=== PATIENT | female | born 1945 | race Caucasian/White ===

== ENCOUNTER 2017-08-04 05:17 | Inpatient (IN) ==
[2017-08-04] MEDS ORDERED: BACITRACIN OINT 0.9 GM PACK TOP ONE (06:36)
[2017-08-04] MEDS ORDERED: TRANEXAMIC ACID 1,000 MG/10 ML VIAL IV ONE ×2 (06:36→07:22)
[2017-08-04] MEDS ORDERED: GABAPENTIN 300 MG CAPSULE PO ONE (06:56)
[2017-08-04] MEDS ORDERED: DIAZEPAM 5 MG TABLET PO ONE (06:57)
[2017-08-04] MEDS ORDERED: METOCLOPRAMIDE 10 MG TABLET PO ONE (06:58)
[2017-08-04] MEDS ORDERED: VANCOMYCIN INJ 1,000 MG in SODIUM CHLORIDE 0.9% 250 ML IV ONE (07:00)
[2017-08-04] MEDS ORDERED: ceFAZolin 1,000 MG in SYRINGE 1 EACH IV ONE (07:00)
[2017-08-04] MEDS ORDERED: VANCOMYCIN 1,000 MG VIAL ONE (07:06)
[2017-08-04] MEDS ORDERED: ceFAZolin 1,000 MG VIAL ONE (07:06)
[2017-08-04] MEDS ORDERED: DIAZEPAM 5 MG TABLET ONE (07:07)
[2017-08-04] MEDS ORDERED: METOCLOPRAMIDE 10 MG/2 ML VIAL ONE (07:10)
[2017-08-04] MEDS ORDERED: PANTOPRAZOLE 40 MG TABLET PO ONE (07:10)
[2017-08-04] MEDS: PANTOPRAZOLE 40 MG TABLET PO SCH ×2 (07:21→17:54)
[2017-08-04] MEDS ORDERED: MORPHINE 10 MG/10 ML VIAL ONE (07:24)
[2017-08-04] MEDS ORDERED: LACTATED RINGERS 1,000 ML IV SCH ×2 (08:00→11:00)
[2017-08-04] MEDS ORDERED: FLUCONAZOLE 150 MG TABLET PO PRN (10:12)
[2017-08-04] MEDS ORDERED: MAGNESIUM HYDROXIDE SUSP 30 ML UDCUP PO PRN (10:15)
[2017-08-04] MEDS ORDERED: ONDANSETRON 4 MG/2 ML VIAL IV PRN ×3 (10:15→10:56)
[2017-08-04] MEDS ORDERED: oxyCODONE IR 5 MG TABLET PO PRN ×2 (10:15)
[2017-08-04] MEDS ORDERED: ZALEPLON 5 MG CAPSULE PO PRN (10:15)
[2017-08-04] MEDS ORDERED: HYDROmorphone 2 MG/1 ML VIAL IV PRN ×4 (10:15→10:56)
[2017-08-04] MEDS ORDERED: KETAMINE 500 MG/10 ML VIAL ONE (10:23)
[2017-08-04] MEDS ORDERED: PROPOFOL 1,000 MG/100 ML BOTTLE IV ONE (10:24)
[2017-08-04] MEDS ORDERED: fentaNYL 100 MCG/2 ML VIAL ONE (10:24)
[2017-08-04] MEDS ORDERED: LACTATED RINGERS 2,000 ML IV ONE (10:25)
[2017-08-04] MEDS ORDERED: diphenhydrAMINE 50 MG/1 ML VIAL IV PRN (10:56)
[2017-08-04] MEDS ORDERED: SODIUM CHLORIDE 0.9% 1,000 ML IV SCH (11:00)
[2017-08-04] MEDS ORDERED: diphenhydrAMINE 50 MG/1 ML VIAL IV STA (11:07)
[2017-08-04] MEDS ORDERED: diphenhydrAMINE 50 MG/1 ML VIAL ONE (11:09)
[2017-08-04 12:18] LABS: Apearance,Urine Clear (Clear); Urine Color Yellow (Yellow)
[2017-08-04 12:19] LABS: Bilirubin,Urine Negative (Negative); Blood, Urine Negative (Negative); Glucose,Urine (UA) Negative (Negative); Ketones,Urine Negative (Negative); Nitrite,Urine Negative (Negative); Protein,Urine Negative; Urine Specific Gravity 1.015 (1.001-1.035); Urine Urobilinogen 0.2 EU/DL (0.2-1.0)
[2017-08-04 12:31] LABS: Squamous Epithelial Cell,Urine Rare /HPF (0-10); WBC,Urine 0-2 /HPF (0-6)
[2017-08-04] MEDS: KETOROLAC 30 MG/1 ML VIAL IV SCH ×3 (17:54→23:26)
[2017-08-04] MEDS: POTASSIUM CHLORIDE INJ 20 MEQ in LACTATED RINGERS 1,000 ML IV SCH ×2 (18:12→21:17)
[2017-08-04] MEDS: METOCLOPRAMIDE 5 MG TABLET PO SCH ×2 (18:17→21:14)
[2017-08-04] MEDS: ACETAMINOPHEN 500 MG TABLET PO SCH ×2 (18:17→21:24)
[2017-08-04] MEDS: ceFAZolin 2,000 MG in PREMIX 1 EACH IV SCH ×2 (18:17→23:25)
[2017-08-04] MEDS: DOCUSATE SODIUM 100 MG CAPSULE PO SCH (21:14)
[2017-08-04] MEDS: GABAPENTIN 300 MG CAPSULE PO SCH (21:14)
[2017-08-04] MEDS: CIPROFLOXACIN 500 MG TABLET PO SCH (21:16)
[2017-08-04] MEDS: POTASSIUM CHLORIDE 10 MEQ TABLET PO SCH (21:16)
[2017-08-04] MEDS: ESTRADIOL 0.01% VAG CREAM 42.5 GM TUBE VAG SCH (21:23)
[2017-08-05] MEDS: ACETAMINOPHEN 500 MG TABLET PO SCH ×2 (01:55→11:06)
[2017-08-05] MEDS: KETOROLAC 30 MG/1 ML VIAL IV SCH (04:29)
[2017-08-05] MEDS: POTASSIUM CHLORIDE INJ 20 MEQ in LACTATED RINGERS 1,000 ML IV SCH (04:29)
[2017-08-05] MEDS: FONDAPARINUX 2.5 MG/0.5 ML SYRINGE SUBCUT SCH (05:48)
[2017-08-05 06:07] LABS: Basophils % 0.2 % (0.0-0.8); Eosinophils # 0.1 10*3/uL (0.0-0.87); Eosinophils % 2.5 % (0.00-10.9); Hematocrit 26.8 VOL% (35.7-47.0); Hemoglobin 8.7 GM/DL (12.0-16.0); Immature Granulocytes % 0.5 %; Immature Granulocytes Absolute 0.03 #; Lymphocytes # 1.3 10*3/uL (1.4-4.0); Lymphocytes % 23.3 % (21.3-54.2); Mean Corpuscular HGB Conc 32.5 GM/DL (32-36); Mean Corpuscular Hemoglobin 32 PG (27-34); Mean Corpuscular Volume 99.6 FL (87-102); Mean Platelet Volume 9.9 FL (9.6-12.0); Monocytes # 0.6 10*3/uL (0.11-0.8); Monocytes % 9.9 % (1.7-12.7); Neutrophils # 3.5 10*3/uL (1.4-7.4); Neutrophils % 63.6 % (38.7-73.9); Platelet Count 155 T/CUMM (130-400); Red Blood Count 2.69 MC/CUMM (3.8-5.5); Red Cell Distribution Width 12.6 % (9.3-17.3); White Blood Count 5.5 T/CUMM (4-12)
[2017-08-05 06:42] LABS: Anisocytosis 1+; Band Neutrophils 6 % (0-10); Eosinophils 1 % (0-10); Lymphocytes 33 % (20-55); Macrocytosis 3+; Platelet Estimate Normal; Segmented Neutrophils 53 % (50-85); Total Cells Counted 100
[2017-08-05 06:43] LABS: Calcium 8.1 MG/DL (8.5-10.1); Osmolality,Calculated 277.7 MOS/KG (273-304); Potassium 4.1 MMOL/L (3.5-5.1)
[2017-08-05] MEDS ORDERED: TUBERCULIN SKIN TEST 0.1 ML SYRINGE INTRADERM ONE (08:00)
[2017-08-05] MEDS: LEVOTHYROXINE 88 MCG TABLET PO SCH (11:05)
[2017-08-05] MEDS: VALSARTAN/HCTZ 160-12.5 MG TABLET PO SCH (11:05)
[2017-08-05] MEDS: FLUoxetine 20 MG CAPSULE PO SCH (11:05)
[2017-08-05] MEDS: METOCLOPRAMIDE 5 MG TABLET PO SCH ×3 (11:05→20:18)
[2017-08-05] MEDS: POTASSIUM CHLORIDE 10 MEQ TABLET PO SCH ×2 (11:06→20:19)
[2017-08-05] MEDS: GABAPENTIN 300 MG CAPSULE PO SCH ×2 (11:06→20:18)
[2017-08-05] MEDS: PANTOPRAZOLE 40 MG TABLET PO SCH (11:07)
[2017-08-05] MEDS: CIPROFLOXACIN 500 MG TABLET PO SCH ×2 (11:07→20:19)
[2017-08-05] MEDS: DOCUSATE SODIUM 100 MG CAPSULE PO SCH ×2 (11:10→20:19)
[2017-08-05] MEDS: CELECOXIB 200 MG CAPSULE PO SCH (15:16)
[2017-08-05] MEDS: ESTRADIOL 0.01% VAG CREAM 42.5 GM TUBE VAG SCH (20:15)
[2017-08-05] MEDS: diphenhydrAMINE CAP 25 MG CAPSULE PO PRN (20:18)
[2017-08-06] MEDS: FONDAPARINUX 2.5 MG/0.5 ML SYRINGE SUBCUT SCH (05:52)
[2017-08-06 06:14] LABS: Basophils % 0.1 % (0.0-0.8); Eosinophils # 0.2 10*3/uL (0.0-0.87); Eosinophils % 2.9 % (0.00-10.9); Hemoglobin 8.4 GM/DL (12.0-16.0); Immature Granulocytes Absolute 0.07 #; Lymphocytes % 14.4 % (21.3-54.2); Mean Corpuscular HGB Conc 32.3 GM/DL (32-36); Mean Corpuscular Hemoglobin 32 PG (27-34); Mean Corpuscular Volume 99.2 FL (87-102); Mean Platelet Volume 9.8 FL (9.6-12.0); Monocytes # 0.6 10*3/uL (0.11-0.8); Monocytes % 8.7 % (1.7-12.7); Neutrophils # 5.1 10*3/uL (1.4-7.4); Neutrophils % 72.9 % (38.7-73.9); Platelet Count 167 T/CUMM (130-400); Red Blood Count 2.62 MC/CUMM (3.8-5.5); Red Cell Distribution Width 12.6 % (9.3-17.3)
[2017-08-06 06:37] LABS: Band Neutrophils 3 % (0-10); Eosinophils 6 % (0-10); Giant Platelets Few; Hypochromasia 1+; Lymphocytes 12 % (20-55); Microcytosis Slight; Platelet Estimate Normal; Segmented Neutrophils 72 % (50-85); Total Cells Counted 100
[2017-08-06] MEDS: VALSARTAN/HCTZ 160-12.5 MG TABLET PO SCH (08:49)
[2017-08-06] MEDS: METOCLOPRAMIDE 5 MG TABLET PO SCH ×3 (08:50→20:21)
[2017-08-06] MEDS: GABAPENTIN 300 MG CAPSULE PO SCH ×2 (08:50→20:21)
[2017-08-06] MEDS: CIPROFLOXACIN 500 MG TABLET PO SCH ×2 (08:50→20:21)
[2017-08-06] MEDS: PANTOPRAZOLE 40 MG TABLET PO SCH (08:50)
[2017-08-06] MEDS: CELECOXIB 200 MG CAPSULE PO SCH (08:50)
[2017-08-06] MEDS: LEVOTHYROXINE 88 MCG TABLET PO SCH (08:50)
[2017-08-06] MEDS: FLUoxetine 20 MG CAPSULE PO SCH (08:50)
[2017-08-06] MEDS: POTASSIUM CHLORIDE 10 MEQ TABLET PO SCH ×2 (08:50→20:21)
[2017-08-06] MEDS: DOCUSATE SODIUM 100 MG CAPSULE PO SCH ×2 (08:53→20:23)
[2017-08-06] MEDS: chlordiazePOXIDE 10 MG CAPSULE PO SCH ×2 (17:51→20:22)
[2017-08-06] MEDS: ESTRADIOL 0.01% VAG CREAM 42.5 GM TUBE VAG SCH (20:16)
[2017-08-06] MEDS: diphenhydrAMINE CAP 25 MG CAPSULE PO PRN (20:20)
[2017-08-07] MEDS: FONDAPARINUX 2.5 MG/0.5 ML SYRINGE SUBCUT SCH (05:20)
[2017-08-07 06:54] LABS: Basophils % 0.2 % (0.0-0.8); Eosinophils # 0.3 10*3/uL (0.0-0.87); Hematocrit 25.8 VOL% (35.7-47.0); Hemoglobin 8.3 GM/DL (12.0-16.0); Immature Granulocytes % 0.6 %; Immature Granulocytes Absolute 0.04 #; Lymphocytes # 1.5 10*3/uL (1.4-4.0); Lymphocytes % 23.3 % (21.3-54.2); Mean Corpuscular HGB Conc 32.2 GM/DL (32-36); Mean Corpuscular Hemoglobin 32 PG (27-34); Mean Corpuscular Volume 99.2 FL (87-102); Mean Platelet Volume 10.4 FL (9.6-12.0); Monocytes # 0.8 10*3/uL (0.11-0.8); Monocytes % 11.6 % (1.7-12.7); Neutrophils % 60.3 % (38.7-73.9); Platelet Count 179 T/CUMM (130-400); Red Cell Distribution Width 12.6 % (9.3-17.3); White Blood Count 6.6 T/CUMM (4-12)
[2017-08-07 07:18] LABS: Eosinophils 1 % (0-10); Giant Platelets Few; Hypochromasia 1+; Lymphocytes 25 % (20-55); Microcytosis Slight; Ovalocytes Slight; Platelet Estimate Normal; Segmented Neutrophils 67 % (50-85); Total Cells Counted 100
[2017-08-07] MEDS: CELECOXIB 200 MG CAPSULE PO SCH (09:56)
[2017-08-07] MEDS: VALSARTAN/HCTZ 160-12.5 MG TABLET PO SCH (09:57)
[2017-08-07] MEDS: POTASSIUM CHLORIDE 10 MEQ TABLET PO SCH (09:57)
[2017-08-07] MEDS: chlordiazePOXIDE 10 MG CAPSULE PO SCH (09:58)
[2017-08-07] MEDS: GABAPENTIN 300 MG CAPSULE PO SCH (09:59)
[2017-08-07] MEDS: FLUoxetine 20 MG CAPSULE PO SCH (09:59)
[2017-08-07] MEDS: DOCUSATE SODIUM 100 MG CAPSULE PO SCH (09:59)
[2017-08-07] MEDS: PANTOPRAZOLE 40 MG TABLET PO SCH (09:59)
[2017-08-07] MEDS: METOCLOPRAMIDE 5 MG TABLET PO SCH (09:59)
[2017-08-07] MEDS: LEVOTHYROXINE 88 MCG TABLET PO SCH (09:59)
[2017-08-07 11:09] VITALS: BP 98/63
[2017-08-07] MEDS ORDERED: chlordiazePOXIDE 10 MG CAPSULE PO PRN (11:11)
== END 2017-08-07 11:02 | disposition swing bed (61) | DRG 470 ==
LOC: N.SDSINP 05:17 → N.3E 12:01
PROVIDERS: ADMIT Orthopaedic Surgery; ATTEND Orthopaedic Surgery

== ENCOUNTER 2018-11-17 10:30 | Inpatient (IN) ==
[2018-11-17] MEDS ORDERED: DICYCLOMINE 10 MG CAPSULE PO PRN (12:04)
[2018-11-17] MEDS ORDERED: HydrOXYzine PAMOATE 25 MG CAPSULE PO PRN (12:04)
[2018-11-17] MEDS ORDERED: LORazepam 2 MG/1 ML VIAL IV PRN (12:04)
[2018-11-17 12:27] LABS: Basophils % 0.2 % (0.0-0.8); Hematocrit 36.7 VOL% (35.7-47.0); Hemoglobin 11.7 GM/DL (12.0-16.0); Immature Granulocytes % 0.6 %; Immature Granulocytes Absolute 0.05 #; Lymphocytes % 11.7 % (21.3-54.2); Mean Corpuscular HGB Conc 31.9 GM/DL (32-36); Mean Corpuscular Volume 99.7 FL (87-102); Mean Platelet Volume 9.4 FL (9.6-12.0); Monocytes % 5.5 % (1.7-12.7); Platelet Count 200 T/CUMM (130-400); Red Blood Count 3.68 MC/CUMM (3.8-5.5); Red Cell Distribution Width 13.2 % (9.3-17.3); White Blood Count 8.3 T/CUMM (4-12)
[2018-11-17 12:52] LABS: Osmolality,Calculated 279.7 MOS/KG (273-304)
[2018-11-17] MEDS ORDERED: THIAMINE INJ 100 MG, FOLIC ACID INJ 1 MG, MULTIVITAMIN INJ 10 ML in SODIUM CHLORIDE 0.9... IV ONE (14:00)
[2018-11-17] MEDS ORDERED: PHENYLEPH/MINERAL OIL/PETROLAT 57 GM TUBE TOP PRN (14:20)
[2018-11-17] MEDS: DICLOFENAC 1% GEL 100 GM TUBE TOP SCH ×2 (14:49→21:51)
[2018-11-17 16:50] LABS: Apearance,Urine CLEAR (Clear); Bacteria,Urine Occasional /HPF (Few); Bilirubin,Urine Negative (Negative); Blood, Urine Negative (Negative); Glucose,Urine (UA) Negative (Negative); Ketones,Urine Negative (Negative); Mucus,Urine Occasional /LPF (Occasional); Nitrite,Urine Negative (Negative); Protein,Urine Negative; RBC,Urine <1 /HPF (0-4); Squamous Epithelial Cell,Urine Occasional /HPF (0-10); Urine Color Straw (Yellow); Urine Specific Gravity 1.018 (1.001-1.035); Urine Urobilinogen < 2.0 EU/DL (0.2-1.0); WBC,Urine 1 /HPF (0-6)
[2018-11-17] MEDS: ONDANSETRON 4 MG/2 ML VIAL IV PRN (16:56)
[2018-11-17] MEDS: LOPERAMIDE 2 MG CAPSULE PO PRN (16:56)
[2018-11-17] MEDS: ACETAMINOPHEN 325 MG TABLET PO PRN (19:51)
[2018-11-17] MEDS ORDERED: METHOCARBAMOL 750 MG TABLET PO PRN (20:49)
[2018-11-17] MEDS: LOSARTAN 50 MG TABLET PO SCH ×2 (21:42→21:43)
[2018-11-17] MEDS: METOPROLOL SUCCINATE XL 25 MG TABLET PO SCH (21:43)
[2018-11-18 05:00] LABS: Basophils % 0.2 % (0.0-0.8); Eosinophils % 0.3 % (0.00-10.9); Hematocrit 32.4 VOL% (35.7-47.0); Hemoglobin 10.6 GM/DL (12.0-16.0); Immature Granulocytes % 0.5 %; Immature Granulocytes Absolute 0.03 #; Lymphocytes # 2.2 10*3/uL (1.4-4.0); Lymphocytes % 34.5 % (21.3-54.2); Mean Corpuscular HGB Conc 32.7 GM/DL (32-36); Mean Corpuscular Volume 99.4 FL (87-102); Monocytes % 10.1 % (1.7-12.7); Neutrophils % 54.4 % (38.7-73.9); Platelet Count 201 T/CUMM (130-400); Red Blood Count 3.26 MC/CUMM (3.8-5.5); Red Cell Distribution Width 13.2 % (9.3-17.3); White Blood Count 6.2 T/CUMM (4-12)
[2018-11-18 05:27] LABS: Calcium 8.8 MG/DL (8.5-10.1); Osmolality,Calculated 282.3 MOS/KG (273-304)
[2018-11-18] MEDS: LOPERAMIDE 2 MG CAPSULE PO PRN (06:16)
[2018-11-18] MEDS: LEVOTHYROXINE 88 MCG TABLET PO SCH (06:16)
[2018-11-18] MEDS: ONDANSETRON 4 MG/2 ML VIAL IV PRN ×2 (06:17→10:39)
[2018-11-18] MEDS: TERBINAFINE 250 MG TABLET PO SCH (09:21)
[2018-11-18] MEDS: ASPIRIN CHEW 81 MG TABLET PO SCH (09:22)
[2018-11-18] MEDS: PANTOPRAZOLE 40 MG TABLET PO SCH (09:22)
[2018-11-18] MEDS: FLUoxetine 20 MG CAPSULE PO SCH (09:22)
[2018-11-18] MEDS: DICLOFENAC 1% GEL 100 GM TUBE TOP SCH ×3 (09:22→20:45)
[2018-11-18] MEDS: ESTRADIOL 0.01% VAG CREAM 42.5 GM TUBE VAG SCH (19:49)
[2018-11-18] MEDS: METOPROLOL SUCCINATE XL 25 MG TABLET PO SCH (20:45)
[2018-11-18] MEDS: LOSARTAN 50 MG TABLET PO SCH (20:45)
[2018-11-18] MEDS: ACETAMINOPHEN 325 MG TABLET PO PRN (20:48)
[2018-11-19 04:23] LABS: Basophils % 0.2 % (0.0-0.8); Eosinophils % 0.5 % (0.00-10.9); Hematocrit 33.3 VOL% (35.7-47.0); Hemoglobin 10.5 GM/DL (12.0-16.0); Immature Granulocytes % 0.3 %; Immature Granulocytes Absolute 0.02 #; Lymphocytes # 2.2 10*3/uL (1.4-4.0); Lymphocytes % 35.5 % (21.3-54.2); Mean Corpuscular HGB Conc 31.5 GM/DL (32-36); Mean Corpuscular Volume 101.2 FL (87-102); Mean Platelet Volume 9.9 FL (9.6-12.0); Monocytes % 10.8 % (1.7-12.7); Neutrophils % 52.7 % (38.7-73.9); Platelet Count 177 T/CUMM (130-400); Red Blood Count 3.29 MC/CUMM (3.8-5.5); Red Cell Distribution Width 13.5 % (9.3-17.3); White Blood Count 6.2 T/CUMM (4-12)
[2018-11-19 05:01] LABS: Calcium 8.9 MG/DL (8.5-10.1)
[2018-11-19] MEDS: ESTRADIOL 0.01% VAG CREAM 42.5 GM TUBE VAG SCH ×2 (05:48→22:16)
[2018-11-19] MEDS: LEVOTHYROXINE 88 MCG TABLET PO SCH (06:15)
[2018-11-19] MEDS ORDERED: LACTATED RINGERS 1,000 ML IV SCH (08:00)
[2018-11-19] MEDS ORDERED: LIDOCAINE 2% 5 ML VIAL ONE (09:00)
[2018-11-19] MEDS ORDERED: PROPOFOL 200 MG/20 ML VIAL IV ONE (09:00)
[2018-11-19] MEDS: TERBINAFINE 250 MG TABLET PO SCH (10:59)
[2018-11-19] MEDS: ASPIRIN CHEW 81 MG TABLET PO SCH (10:59)
[2018-11-19] MEDS: PANTOPRAZOLE 40 MG TABLET PO SCH (10:59)
[2018-11-19] MEDS: FLUoxetine 20 MG CAPSULE PO SCH (10:59)
[2018-11-19] MEDS: DICLOFENAC 1% GEL 100 GM TUBE TOP SCH ×3 (11:01→20:54)
[2018-11-19] MEDS: LOPERAMIDE 2 MG CAPSULE PO PRN (14:55)
[2018-11-19] MEDS: ACETAMINOPHEN 325 MG TABLET PO PRN (14:57)
[2018-11-19] MEDS: METOPROLOL SUCCINATE XL 25 MG TABLET PO SCH (20:55)
[2018-11-19] MEDS: LOSARTAN 50 MG TABLET PO SCH (20:58)
[2018-11-20] MEDS: LEVOTHYROXINE 88 MCG TABLET PO SCH (06:04)
[2018-11-20 08:02] VITALS: BP 125/82
[2018-11-20] MEDS: PANTOPRAZOLE 40 MG TABLET PO SCH (08:08)
[2018-11-20] MEDS: TERBINAFINE 250 MG TABLET PO SCH (08:08)
[2018-11-20] MEDS: FLUoxetine 20 MG CAPSULE PO SCH (08:08)
[2018-11-20] MEDS: ASPIRIN CHEW 81 MG TABLET PO SCH (08:08)
[2018-11-20] MEDS: DICLOFENAC 1% GEL 100 GM TUBE TOP SCH (08:11)
[2018-11-20] MEDS: LOPERAMIDE 2 MG CAPSULE PO PRN (10:08)
[2018-11-24] MEDS ORDERED: ERGOCALCIFEROL 50,000 UNIT CAPSULE PO SCH (09:00)
== END 2018-11-20 11:45 | disposition home or self-care (01) | DRG 896 ==
LOC: N.4E 10:44 → SUATTDRO 10:44
PROVIDERS: ADMIT Internal Medicine; ATTEND Internal Medicine